=== PATIENT | female | born 1965 | race Caucasian/White ===

== ENCOUNTER 2024-01-18 09:29 | Outpatient (RCR) | payer OTHER, SELFPAY | END 2024-01-18 23:59 | disposition home or self-care (01) | LOC: RPT 09:29 | PROVIDERS: ATTENDING PHYSICIAN Podiatrist; FAMILY PHYSICIAN Nurse Practitioner Primary Care | DX: Z47.89 Encounter for other orthopedic aftercare (principal); M79.672 Pain in left foot; Z73.6 Limitation of activities due to disability | CPT/HCPCS: 97110; 97162; 97535 ==

== ENCOUNTER → 2024-02-01 11:21 | Outpatient (REF) | payer OTHER, SELFPAY | LOC: WDC 11:21 | PROVIDERS: ATTENDING PHYSICIAN Nurse Practitioner Primary Care; REFERRING PHYSICIAN Internal Medicine Geriatric Medicine | DX: Z12.31 Encounter for screening mammogram for malignant neoplasm of breast (principal) | CPT/HCPCS: 77063; 77067 ==

== ENCOUNTER 2024-02-05 18:07 | Outpatient (RCR) | payer OTHER, SELFPAY | END 2024-02-05 23:59 | disposition home or self-care (01) | LOC: RPT 18:07 | PROVIDERS: ATTENDING PHYSICIAN Podiatrist; FAMILY PHYSICIAN Nurse Practitioner Primary Care | DX: M79.672 Pain in left foot (principal); Z98.890 Other specified postprocedural states; Z73.6 Limitation of activities due to disability | CPT/HCPCS: 97110; 97140 ==

== ENCOUNTER → 2024-07-30 19:39 | Outpatient (REF) | payer OTHER, SELFPAY | LOC: MRI 3T 19:39 | PROVIDERS: ATTENDING PHYSICIAN Physician Assistant; FAMILY PHYSICIAN Nurse Practitioner Primary Care | DX: H93.A2 Pulsatile tinnitus, left ear (principal) | CPT/HCPCS: 70543; 70553; A9575 ==

== ENCOUNTER → 2024-11-27 14:33 | Outpatient (REF) | payer OTHER, SELFPAY | LOC: HWRAD 14:33 | PROVIDERS: ATTENDING PHYSICIAN Nurse Practitioner Primary Care | DX: M85.89 Other specified disorders of bone density and structure, multiple sites (principal) | CPT/HCPCS: 77080 ==

== ENCOUNTER → 2025-01-17 09:11 | Outpatient (REF) | payer OTHER, SELFPAY | LOC: HWRCS 09:11 | PROVIDERS: ATTENDING PHYSICIAN Internal Medicine Cardiovascular Disease; FAMILY PHYSICIAN Nurse Practitioner Primary Care | DX: R00.2 Palpitations (principal); R06.02 Shortness of breath | CPT/HCPCS: 93306 ==

== ENCOUNTER → 2025-02-06 07:40 | Outpatient (REF) | payer OTHER, SELFPAY | LOC: HWRAD 07:40 | PROVIDERS: ATTENDING PHYSICIAN Physician Assistant; FAMILY PHYSICIAN Nurse Practitioner Primary Care | DX: R59.0 Localized enlarged lymph nodes (principal) | CPT/HCPCS: 76536 ==

== ENCOUNTER → 2025-02-24 13:52 | Outpatient (REF) | payer OTHER, SELFPAY | LOC: WDC 13:52 | PROVIDERS: ATTENDING PHYSICIAN Nurse Practitioner Primary Care | DX: Z12.31 Encounter for screening mammogram for malignant neoplasm of breast (principal) | CPT/HCPCS: 77063; 77067 ==

== ENCOUNTER 2025-09-15 13:22 | Observation (INO) | payer OTHER, SELFPAY ==
[2025-09-15] VITALS (9 sets, daily range): BP systolic 102–148; BP diastolic 64–106; PULSE 73–96; BMI 25.7; BMI 25.6
--- NOTE | 2025-09-15 08:29 | ED.GENMED ---
History of Present Illness
General
Chief Complaint: Dizziness
Source: patient and spouse
Exam Limitations: none
Time Seen by Provider: 09/15/25 08:16
Nursing documentation reviewed up to this point in time: agreed with
History of Present Illness
History of Present Illness:
Note:
CHIEF COMPLAINT(S)
Lightheadedness and dizziness.
HISTORY OF PRESENT ILLNESS
The patient is a 60-year-old female who presents with lightheadedness and dizziness. She reports feeling physically imbalanced and describes mixed sensations of spinning and lightheadedness that intensify with movement. The patient mentions nausea
associated with these sensations but denies any headache. She does not indicate current use of any prescribed medications from the morning. The patient was diagnosed with strep throat recently and began treatment with amoxicillin. There is no
current sore throat, but there was at the onset of the illness. The patient denies any recent ophthalmology appointments, although some vision assessments were conducted as part of the physical examination today.
PAST MEDICAL AND SURGICAL HISTORY
The patient reports being diagnosed with hypertension in 2019, which has been managed with propranolol, and does not report significant issues since treatment started.
ALLERGIES
The patient mentioned an unspecified allergy to medications.
MEDICATIONS
The patient is currently taking propranolol for hypertension.
PHYSICAL EXAM
General: Alert, no acute distress.
Skin: Warm, dry.
Head: Normocephalic, atraumatic.
Neck: Supple, trachea midline.
Eye, Ears, Nose, Mouth, and Throat: Oral mucosa moist, vision assessment conducted.
Cardiovascular: Normal peripheral perfusion, no edema.
Respiratory: Respirations are non-labored.
Gastrointestinal: Abdomen nondistended.
Back: Normal range of motion, normal alignment.
Musculoskeletal: Normal range of motion, normal strength.
Neurological: Alert and oriented to person, place, time, and situation, no focal neurological deficit observed.
Psychiatric: Cooperative, appropriate mood & affect.
PLAN
1. Perform a computed tomography (CT) scan of the head.
2. Conduct blood tests to further evaluate the cause of symptoms.
3. Administer medication to alleviate dizziness and nausea; include metoclopramide and diphenhydramine.
4. Follow up on the effectiveness of medications and interventions administered initially.
5. Conduct further eye movement tests if necessary based on CT and blood test results.
DIFFERENTIAL DIAGNOSIS
The Differential Diagnosis includes, in no particular order and is not limited to:
1. Benign paroxysmal positional vertigo (BPPV)
2. Vestibular neuronitis
3. Menieres disease
4. Orthostatic hypotension
5. Hypertension
6. Labyrinthitis
7. Acute labyrinthine concussion or trauma
8. Cerebellar stroke or transient ischemic attack
9. Anxiety disorder with panic attacks
10. Migraine-associated vertigo
CARE-UPDATE
09/15/25 - 12:08
CT head and neck angiography and non-contrast show no acute findings. The patient continues to experience dizziness and blurry vision in the right eye. Neurology recommends starting aspirin and admission for MRI and further evaluation.
EKG
My independent EKG interpretation is:
- Time of EKG: Not provided
- Rhythm: Normal sinus rhythm
- Heart Rate: 68 bpm
- TN Interval: Normal
- QRS Duration: Normal
- QT Interval: Normal
- Gaffney: Normal
- Abnormalities: None observed (No signs of ischemia)
Disposition:
SUMMARY OF ENCOUNTER
The patient, a 60-year-old female, presented to the emergency department with complaints of lightheadedness, dizziness, and recent changes in vision, specifically blurry vision in the right eye. Given the concern for a posterior circulation
cerebrovascular accident (CVA), a CT scan of the head and a CT head and neck angiography were ordered. These imaging tests showed no acute findings. The patient was treated with aspirin and the case was discussed with neurology, who recommended
admission for further evaluation with an MRI and additional assessments.
DISPOSITION
Admit to hospital for further evaluation.
ASSESSMENT
The current assessment is concern for posterior circulation cerebrovascular accident (CVA) despite no acute findings on initial CT imaging.
EMERGENCY TREATMENTS ADMINISTERED
Aspirin was administered according to neurologys recommendation.
MANAGEMENT OF THE PATIENTS CARE WAS DISCUSSED WITH
Neurologist for further evaluation and management decision-making.
PLAN
Admit the patient for further evaluation, specifically to undergo an MRI and additional assessments as determined by neurology.
INDEPENDENT REVIEW OF LABS AND INTERPRETATION OF TESTS
My independent review of CT head and neck angiography and non-contrast CT head is no acute findings.
MEDICATION RECONCILIATION
Aspirin administered.
MEDICAL DECISION MAKING
-Complexity of Data Reviewed: Chronic conditions affecting care include hypertension. Differential diagnosis includes benign paroxysmal positional vertigo (BPPV), vestibular neuronitis, Menieres disease, orthostatic hypotension, hypertension,
labyrinthitis, acute labyrinthine concussion or trauma, cerebellar stroke or transient ischemic attack, anxiety disorder with panic attacks, migraine-associated vertigo.
-Data:
Category 1
My independent interpretation of CT head and CT head and neck angiography showed no acute findings.
Category 3
Discussion of management with neurology regarding the administration of aspirin and decision to admit for further evaluation.
DIAGNOSIS
Suspected posterior circulation cerebrovascular accident (CVA) ICD-10 Code: I63.8
Past History
Past History
ED Past Medical History: Hypercholesterolemia and Other (Adrenal insufficiency, prolapsed bladder, kidney stones, colitis)
ED Past Surgical History: , Gynecological (Tubal ligation, laparoscopy for lysis of adhesions) and Other (Breast reduction)
Social History
Tobacco: Non-smoker
Alcohol: Occasional
Personal:
Living: with family
Employment: Employed
Family History
Family History: Diabetes, Hypertension and Other (Grandmother with prolapsed bladder mother with breast cancer)
Phy Exam
Physical Exam
Physical Exam:
.
Course
Orders/Labs/Results
Orders:
Orders
09/15/25 Breakfast
Cholesterol Lowering
At Your Request: Full Participation
Does patient need a safe tray?: No
09/15/25 08:28
Electrocardiogram (*1) Stat
Reason for Study: Other
Other Reason for Exam: neuro symptoms
CT Head & Neck Angio W/wo IV Urgent
Comment:
Reason For Exam: right eye vision changes since Monday
Cardiac Monitoring- Treatment ONCE
EKG- Treatment ONCE
09/15/25 08:30
Diphenhydramine [Benadryl] 25 mg IV NOW STA
Metoclopramide [Reglan] 10 mg IV NOW STA
09/15/25 08:44
Complete Blood Count/With Diff Urgent
Comprehensive Metabolic Panel Urgent
PTT Urgent
Prothrombin Time Urgent
09/15/25 08:51
Electrocardiogram (*1) Urgent
Reason for Study: Vertigo / Dizzy
09/15/25 12:05
Aspirin 325 mg PO NOW STA
09/15/25 12:47
Admit/Transfer Patient As Directed
Co-Sign Provider:
Level of Care: Observation services
Assign to:: Telemetry
Physician / Group: Dario
Diagnosis: Blurry Vision
Reason for Telemetry: CVA/TIA
Date to Stop Telemetry: 09/18/25
Time to Stop Telemetry: 11:00
PRN Pain Medication Management As Directed
May give lesser potent ordered pain med per pt: Yes
preference::
Protocol:: Medication orders for pain may be administered in a
manner that supports deferring to patient preference
when the pt is:
- Requesting an ordered lesser potent pain medication.
Least to most potent pain medications are defined
as: acetaminophen < NSAID < tramadol < opioids
(morphine, oxycodone, hydromorphone).
- Requesting a lesser dose of the same medication IF
ORDERED.
- Requesting a less intrusive route of administration
if both routes are prescribed by the provider (PO <
IV).
09/15/25 12:51
Code Status As Directed
Resuscitation Status: Full Code
09/15/25 13:15
Acetaminophen [Tylenol] 650 mg PO NOW STA
09/15/25 15:32
Acetaminophen [Tylenol/Feverall] 650 mg RECTAL Q4HPRN PRN
Acetaminophen [Tylenol] 650 mg PO Q4HPRN PRN
estradiol See Dose Instructions TRANSDERM MOFR
09/15/25 15:32
Case Management Consult ONCE
Case Management Consult: Discharge Planning
Comment: stroke/tia
DIETARY IP CONSULT Routine
Reason for Consult: stroke/TIA
NEUROLOGY CONSULT Urgent
Consulting Provider: Ray Carrillo
Was physician already notified: Yes
[facility] Registered Nurse Urgent
MR Brain Without Contrast Routine
Comment:
Reason For Exam: stroke/TIA
Recent pill cam endoscopy?: No
Activity As Directed
Activity Level: Out of Bed-Early Mobility
NIH Stroke Scale As Directed
Directions: Per protocol
Comment: every shift and with any change in condition or mental status
Neurological Checks As Directed
Frequency: q4h
Additional Instructions:: q4h x 24h upon admission to the floor, then qshift & with any change in condition
and mental status
Orthostatic Vital Signs As Directed
Orthostatic VS Frequency: Daily
Patient Education As Directed
Type: Stroke education packet
Comment: provide to patient and family
Pneumatic Compression Sleeves As Directed
Type: Knee high
Vital Signs As Directed
Frequency: Per unit guidelines
Call for:: BP greater than 180/105 mmHg or less than 100/60 mmHg
Ot Eval And Treat Routine
Pt Eval And Treat Routine
Activity Level: Out of Bed-Early Mobility
Speech Therapy Eval & Treat Routine
DX Deep Vein Thrombosis Video Routine
09/16/25 06:00
Basic Metabolic Panel IN AM
Cardiovascular Evaluation IN AM
Complete Blood Count/No Diff IN AM
Glycohemoglobin (HgbA1c) IN AM
Magnesium IN AM
09/16/25 08:00
Aspirin Chewable [Low Strength Aspirin] 81 mg PO DAILY
Hydrochlorothiazide [Oretic] 12.5 mg PO DAILY
Venlafaxine [Effexor] 25 mg PO DAILY
progesterone micronized See Dose Instructions PO DAILY
09/18/25 11:00
DC Protocol for Telemetry ONCE
Abnormal Lab Results
09/15/25
08:44
Carbon Dioxide 31 H mmol/L
(2230)
09/15/25 08:44
09/15/25 08:44
Vital Signs
Initial and Last Documented VS:
Initial Vital Signs
Temp Pulse Resp BP Pulse Ox
97.7 F 83 16 140/87 99
09/15/25 08:13 09/15/25 08:13 09/15/25 08:13 09/15/25 08:13 09/15/25 08:13
Last Documented Vital Signs
Temp Pulse Resp BP Pulse Ox
97.7 F 73 17 109/68 98
09/15/25 08:13 09/15/25 14:53 09/15/25 14:53 09/15/25 14:53 09/15/25 10:00
*Pulse Oximetry
SaO2: 99
Oxygen Mode of Delivery: Room air
Patient hypoxic: no
*Critical Care Note
Total Time (30-74mins, 75-104mins- exclusive of procedures): Not Applicable
ED Attending Note
-
Portions of this chart may have been created with voice recognition software.� Occasional wrong word or��sound alike� substitutions may have occurred due to the inherent limitations of voice recognition software.
Discharge Plan
Departure
Patient Disposition: Admit
Date of Disposition: 09/15/25
Time of Disposition: 12:05
Admit to: Telemetry
Presentation/result/management discussed w/ accepting MD/DO: Hospitalist
Patient with high blood pressure during this ER visit?: Yes
Condition: Good
Discharge Problem:
Blurred vision, right eye, Dizziness
Interventions
Interventions:
*Risk Screen - Suicide Last Done: 09/15/25 15:50
*General Assessment Last Done: 09/15/25 08:50
*Neglect/Abuse Screening Last Done: 09/15/25 08:15
*ED- Fall Risk Assessment Last Done: 09/15/25 08:50
*ED COVID-19 Vaccine History Last Done: 09/15/25 15:50
*ED Influenza Vaccine History Last Done: 09/15/25 08:50
*Nursing Disposition Last Done: 09/15/25 15:25
ED- Neurological Assessment Last Done: 09/15/25 08:50
ED- Cardiac Assessment Last Done: 09/15/25 08:50
Discharge Date and Time
Discharge Date/Time: 09/15/25 15:35
[2025-09-15] MEDS: REGLAN 10 MG IV (08:45)
[2025-09-15] MEDS: BENADRYL 25 MG IV (08:45)
[2025-09-15 09:04] LABS: Hematocrit 43.7 % (37.0-47.0); Hemoglobin 14.7 g/dL (12.0-16.0); Mean Corp Hgb Conc. 33.6 g/dL (33.0-37.0); Mean Corpuscular Volume 85.5 fL (81.0-99.0); Nucleated Red Blood Cells % 0 %; Platelet Count 320 10^3/uL (130-400); Red Cell Dist. Width 13.2 % (11.5-14.5)
[2025-09-15 09:13] LABS: INR 0.93; PT 12.8 Sec (11.4-14.6)
[2025-09-15 09:14] LABS: APTT 25.8 Sec (23.4-35.0)
[2025-09-15 09:20] LABS: ALT (SGPT) 23 U/L (0-35); AST (SGOT) 22 U/L (14-36); Albumin 4.4 g/dl (3.5-5.0); Alkaline Phosphatase 53 U/L (38-126); Blood Urea Nitrogen 17 mg/dl (7-17); Calcium 9.3 mg/dl (8.4-10.2); Carbon Dioxide 31 mmol/L (22-30); Chloride 102 mmol/L (98-107); Glucose 86 mg/dl (70-99); Potassium 4.5 mmol/L (3.5-5.1); Sodium 137 mmol/L (135-145); Total Protein 6.9 g/dl (6.3-8.2); eGFR > 60.00
--- NOTE | 2025-09-15 12:13 | HPS.HSE ---
Family Physician
-
Family Physician: Sandra Lujan
Chief Complaint
-
Blurry Vision and Dizziness
History of Present Illness
Patient is a 60 y/o female past medical history of adrenal insufficiency, and dyslipidemia who presents with blurry vision, dizziness and headache. Patient reports last week she took a coarse of antibiotics for strep throat, and notes she took
steroids for her adrenal insufficiency. She reports she does not take steroids on a regular basis. Two days ago she developed blurry vision involving her right eye only. She reports associated dizziness and difficulty with her balance. She
reports headache described as pressure across the top of her head. She denies any prior similar visual problems.
Medical History
Past Medical History
Past Medical History: Reports Other
Additional Past Medical History:
Adrenal Insufficiency
Dyslipidemia
Spinal Stenosis
GERD
Lymphocytic Colitis
Small Bowel Bacterial Overgrowth
Nephrolithiasis
Migraine Headache (Patient reports resolved after menopause)
Past Surgical History: Reports Other
Additional Past Surgical History:
Exploratory Laparotomy for Adhesion
Section
Tubal Ligation
Breast Reduction
Social History
Tobacco: Non-smoker
Alcohol: None
Family History
Family History: Not pertinent
Allergies / Home Medications
Allergies reflects when Allergies were last updated in [email or web address].
Home Medications with original date entered in [email or web address]
Allergy/Medication List:
Allergies
Allergy/AdvReac Type Severity Reaction Status Date / Time
No Known Allergies Allergy Verified 10/07/22 14:45
Home Medications
venlafaxine 25 mg tablet 25 mg PO DAILY 09/21/19
estradiol 0.025 mg/24 hr semiweekly transdermal patch 1 patch transdermal MOFR 09/15/25
hydrochlorothiazide 12.5 mg tablet 12.5 mg PO DAILY 09/15/25
progesterone micronized 100 mg capsule 100 mg PO DAILY 09/15/25
tirzepatide (weight loss) 7.5 mg/0.5 mL subcutaneous pen injector (Zepbound) 7.5 mg SC FR 09/15/25
Review of Systems
-
A 12 point ROS was completed and negative except as noted: Yes
Constitutional: Denies Fever or Chills
Respiratory: Denies Cough or Trouble Breathing
Cardiac: Denies Chest Pain or Palpitations
Physical Exam
Vital Signs
Vital Signs
Temp Pulse Resp BP Pulse Ox
97.7 F 67 15 120/84 98
09/15/25 08:13 09/15/25 10:00 09/15/25 10:00 09/15/25 10:00 09/15/25 10:00
Physical Exam
General: Well Developed, Well Nourished and No Apparent Distress
HEENT: NormoCephalic, Anicteric, Moist mucous membranes, Atraumatic and Other (Blurry Vision reports with right eye only )
Respiratory: Clear and Non Labored Respirations; No Wheezes, Rales or Rhonchi
Cardiac: S1/S2 and Regular Rhythm; No Murmur
GI: Soft, Non Tender, Non Distended and Normal Bowel Sounds
Rectal: Deferred by Provider
Musculoskeletal: No Clubbing, No Cyanosis and No Edema
Skin: Warm and Dry; No Rash
Neuro: Awake, Alert, Oriented and Nonfocal/grossly intact
Psych: Calm
Laboratory Results
-
09/15/25 08:44
09/15/25 08:44
Laboratory Results
PT 12.8 Sec (11.4-14.6) 09/15/25 08:44
INR 0.93 09/15/25 08:44
APTT 25.8 Sec (23.4-35.0) 09/15/25 08:44
Total Bilirubin 1.0 mg/dl (0.2-1.3) 09/15/25 08:44
AST 22 U/L (14-36) 09/15/25 08:44
ALT 23 U/L (0-35) 09/15/25 08:44
Alkaline Phosphatase 53 U/L (38-126) 09/15/25 08:44
Data Reviewed
-
CT Scan: Report Reviewed by me
Lab Data: Labs Reviewed by me
Impression/Plan
-
Monocular Blurry Vision of Right Eye, possibly ocular migraine vs primary ophthalmologic problem, low suspicion for acute stroke
-Consult Neurology
-Continue aspirin
-Check Brain MRI
-Check HgbA1c and Lipid Panel
Adrenal Insufficiency
-Patient reports no longer taking steroids on a regular basis
Dyslipidemia
-Patient reports intolerance to statins
Nephrolithiasis
-Continue HCTZ
DVT proph: SCDs
Code Status: Full Code
--- NOTE | 2025-09-15 12:35 | W.PN.UPDATE ---
Update Note
Progress Note Update
This note serves as an addendum to the H&P by publications sales representative SUSANA�
Karolina DIETERICK
HPI�
60F Non smoker seen at ER
- reports R Eyes abnormal visual changes on Sat ( 09/13/25)
- also reports dizziness
- now feels like 'my head is about to explode'.
- Pt had an Cabin Worker but not Certified Registered Dental Assistant but did not see them
- Recent antibiotics for strep throat.
PHX
Hypercholesterolemia
Adrenal insufficiency
prolapsed bladder
kidney stones
colitis
Tubal ligation, laparoscopy for lysis of adhesions
Breast reduction
Relevant VS
Temp Pulse Resp BP Pulse Ox
97.7 F 67 15 120/84 98
09/15/25 08:13 09/15/25 10:00 09/15/25 10:00 09/15/25 10:00 09/15/25 10:00
PE
Gen: NAD
HEENT: R eye blurry vision
Neck: supple, no neck bruit
Lungs: CTA
Cor: RRR S1 S2
TOWEL DISTRIBUTOR: AAO3, NFND
MS:No edema
Psych: Nl mood and affect
Relevant Data�
10/03/22 09/15/25
15:06 08:44
WBC 5.6
Hgb 14.3 14.7
Plt Count 270 320
09/15/25
08:44
Carbon Dioxide 31 H
BUN 17
Creatinine 1.0
eGFR > 60.00
EKG
NORMAL SINUS RHYTHM
CANNOT RULE OUT INFERIOR INFARCT , AGE UNDETERMINED
ABNORMAL ECG
WHEN COMPARED WITH ECG OF 15-Sep-2025 08:37,
NO SIGNIFICANT CHANGE WAS FOUND
Confirmed by PARRIS BARRERA MD ([id number]) on 09/15/2025 11:49:40 AM
11/24/25 CT Head & Neck Angio W/wo IV
CT Brain: No acute intracranial process. Specifically, no evidence of acute hemorrhage.
CTA Head: No significant arterial stenosis. No aneurysm.
CTA Neck: No significant arterial stenosis. Mild degenerative changes of C4-C7.
ASSESSMENT & PLAN
Acute and persistent and worsening R Eye monocular blurry vision since Sat ( 09/13/24 )
DDX is broad such as Ophthalmic migraine, Ocular circulation, Optic Nv, Glaucoma, Retinal TIA
HX intolerance to multiple statins
- Has MYERS
- painless
- No red eye
- No flashes or floaters
- No field defect
- Non contrast brain MRI
- s/p loading ASA - cont baby ASA
- Fasting lipids, A1C
HX Adrenal insufficiency
K 4.1, HCO3 31
- Partial adherence to hydrocortisone
- last dose hydrocortisone was last week
- Encorage adherence to Steroid replacement Tx
BMI 25 - qualify for overweight
On SC Tirzepatide Q FRI for Fatty liver ??? since March 2025
DVT Px:
Full Code:
OBS TLM
--- NOTE | 2025-09-15 12:37 | CON.NEURO4 ---
Addendum entered and electronically signed by Ray Carrillo MD 09/15/25 22:00:
The etiology of her symptoms is not clear at this time but she appears to have decreased vision only in the right eye and she does not have a visual field deficit. The patient says that her vision in the right eye is decreased by about 10 to 20% as
compared to the left eye. She will be seen by an bulk driver when she is discharged from the hospital. The plan is to get MRI of the brain without contrast to rule out a posterior circulation stroke. Cannot rule out branch retinal artery
occlusion.
Addendum entered and electronically signed by Ray Carrillo MD 09/15/25 21:57:
The patient was seen and examined today along with nurse practitioner Margarita Reid, and I agree with her assessment and management plan. Given below is my addendum.
The patient is a 60 years old female who presented to the hospital with report of dizziness and right eye visual disturbance starting about 2 days ago on 09/13/2025. She also reports headache which she thinks is because of the 'eye strain'. She
was able to read quite well but she says that she still feels that the vision in the right eye is slightly decreased as compared to left eye and she says it is new for her for the last 2 days.
Neurologic examination: The patient is alert and oriented x 3, speech is clear, the cranial nerves II to XII are grossly intact, the visual knight are grossly full, the motor strength is 5/5 bilaterally, the sensations are grossly intact and there
is no limb ataxia seen.
The patient was not a candidate for TNK as the NIH stroke scale was 0.
The etiology of her symptoms is clear at this time but she appears to have decreased to urine only in the right eye and she does not have a visual field deficit. She will be seen by an bulk driver when she is discharged from the hospital. The
plan is to get MRI of the brain without contrast to rule out a posterior circulation stroke. Cannot rule out branch retinal artery occlusion.
She will also be on aspirin 81 mg daily. She will also be on atorvastatin 20 mg daily.
Original Note:
Consultation - Neurology 4
-
CONSULTING PHYSICIAN: Ray Carrillo MD
REFERRING PHYSICIAN: Hospitalists/Nohelia Rodarte PA-C
DICTATED BY: SHA Gandara
DATE/TIME OF REQUEST: 09/15/25
DATE/TIME OF CONSULTATION: 09/15/25
Reason for Consultation: Left eye visual disturbance
History of Present Illness:
This is a 60-year-old female who has presented to the hospital with report of dizziness and right eye visual disturbance starting two days ago on 09/13/25. Patient reports that last week she had an 'eye strain' headache most of the week which she
attributed it to working on her computer. She also notes having strep throat and completing a course of antibiotics and steroids for adrenal insufficiency. Two days ago on 09/13/25 she woke up around 0600 and reports she initially thought she felt
at her baseline. She started reading, and noticed that her vision had wavy lines in her right eye only. She put her glasses on and her symptoms did not improve. When she closes her left eye her vision does not improve in her right eye, but when she
closes her right eye her left eye vision is normal. She also note feeling dizzy at the same time, she describes this as off-balance. Her symptoms did not resolve, prompting her to come to the ER for evaluation. CTA head/neck was obtained on arrival
and is negative for any acute abnormalities. She is not a candidate for TNK/IAT due to NIHSS 0, outside of time window. She was loaded with aspirin in the ER. She denies any speech/swallowing difficulty, numbness, and weakness. She still notes an
'eye-strain' frontal headache that she rates a 2/10. Her glasses were updated over the summer by optometry, she has not seen ophthalmology yet. She notes a history of migraine headaches prior to menopause but she has never had symptoms like this
associated with her headaches in the past.
Past Medical History: HLD, PPPD, migraines, TMJ, HLD, adrenal insufficiency, spinal stenosis, anxiety, depression, IBS, osteopenia
Surgical History: R RTC repair, b/l bunionectomy, , breast reduction, tubal ligation, laparoscopy for lysis of adhesions.
Family History: Mother- ICH.
Social History: Denies tobacco and illicit drug use. Occasional alcohol.
Allergies: No known allergies.
Home Medications: See below.
Review of Symptoms:
Patient denies any fever, chest pain, shortness of breath, GI or symptoms.
�Per the HPI.�All systems are reviewed negative except above.
Physical Exam:
The patient is afebrile, abdomen is nondistended, breathing is unlabored, skin is warm and dry, no edema.
NIH Stroke Scale:
I performed the NIH stroke scale on the patient on 09/15/25 at 1245. The patient scored 0 points on the NIH stroke scale assessment, which were assigned as follows: See below.
Neurologic Examination:
The patient is awake, alert and oriented x 3. She is able to follow commands and answer questions appropriately. There is no aphasia or dysarthria. On cranial nerve assessment, pupils are 3 mm bilateral, round and reactive to light and
accommodation. Visual knight are full. Extraocular movements are intact. Facial sensations are intact and bilaterally symmetrical, there is no facial asymmetry. Hearing is intact bilaterally to normal conversation volume. Tongue palate and uvula
are midline. Sternocleidomastoid strengths are full bilaterally. Motor strengths are 5/5 bilateral upper and lower extremities on medical research [place] scale. There is no drift or involuntary movement noted. Deep tendon reflexes are 2+ bilateral
upper and lower extremities and Babinski is absent bilaterally. Sensations of pain, touch, temperature and vibration are intact and bilaterally symmetrical. There was no extinction noted on double simultaneous stimulation. Coordination is intact by
finger to nose bilaterally.
Lab Results: See below.
Neuro Imaging:
1. CTA head/neck 09/15/25: CT Brain: No acute intracranial process. Specifically, no evidence of acute hemorrhage. CTA Head: No significant arterial stenosis. No aneurysm. CTA Neck: No significant arterial stenosis. Mild degenerative changes of
C4-C7.
Differentials for the patient's presentation include:
1. Right eye visual disturbance, dizziness, and headache; uncertain etiology, possibilities include an eye abnormality given this is a unilateral eye issue, complicated migraine, vs an ischemic stroke.
Patient has the following risk factors for their symptoms: HTN, HLD, hx migraines
IV Tenecteplase/IAT candidacy: Not a candidate due to NIHSS 0, outside of time window.
Recommendations:
-Continue aspirin 81mg daily.
-MRI brain noncontrast pending.
-Check orthostatic vital signs.
-Goal normotension.
-NIHSS and neurological checks per unit guidelines.
-Provide patient with a stroke education packet.
-Follow-up with ophthalmology as an outpatient.
Discussed patient care with: Dr. Carrillo, the patient, patient's spouse
Vital Signs and Labs
-
Vital Signs and Labs:
Vital Signs
Temp Pulse Resp BP Pulse Ox
97.7 F 67 15 120/84 98
09/15/25 08:13 09/15/25 10:00 09/15/25 10:00 09/15/25 10:00 09/15/25 10:00
Lab Results
09/15/25 08:44
09/15/25 08:44
PT 12.8 Sec (11.4-14.6) 09/15/25 08:44
INR 0.93 09/15/25 08:44
APTT 25.8 Sec (23.4-35.0) 09/15/25 08:44
Sodium 137 mmol/L (135-145) 09/15/25 08:44
Potassium 4.5 mmol/L (3.5-5.1) 09/15/25 08:44
BUN 17 mg/dl (7-17) 09/15/25 08:44
Glucose 86 mg/dl (70-99) 09/15/25 08:44
Calcium 9.3 mg/dl (8.4-10.2) 09/15/25 08:44
Medications
-
Home Medications
�Medication �Instructions �Recorded
venlafaxine 25 mg tablet 25 mg PO DAILY 09/21/19
estradiol 0.025 mg/24 hr 1 patch transdermal MOFR 09/15/25
semiweekly transdermal patch
hydrochlorothiazide 12.5 mg tablet 12.5 mg PO DAILY 09/15/25
progesterone micronized 100 mg 100 mg PO DAILY 09/15/25
capsule
tirzepatide (weight loss) 7.5 7.5 mg SC FR 09/15/25
mg/0.5 mL subcutaneous pen
injector (Zepbound)
NIH Stroke Score
Subsequent NIH Scale
Date of Subsequent NIH Scale: 09/15/25
Time of Subsequent NIH Scale: 12:45
NIH Stroke Score
Level of Consciousness: 0 - Alert
LOC Questions: 0-Answers both correctly
LOC Commands: 0-Performs both correctly
Best Horizontal Gaze: 0-Normal
Visual Knight: 0=Normal, no visual loss
Facial Palsy: 0=Normal, symmetrical
Motor - Right Arm: 0=No drift 10 seconds
Motor - Left Arm: 0=No drift 10 seconds
Motor - Right Le-No drift 5 seconds
Motor - Left Le-No drift 5 seconds
Limb Ataxia: 0-Absent
Sensation: 0-Normal
Best Language: 0-No aphasia
Dysarthria: 0-Normal
Extinction and Inattention: 0-No abnormality
NIH Total Score:: 0
Modified Andrew (mRS) Score
Modified Andrew Scale (mRS): Slight disability. Able to look after own affairs.
Score: 2
Alteplase Contraindication
Inclusion and Exclusion criteria reviewed: Yes
Reasons for NON-Tx with Thrombolytics ABSOLUTE Exclusions: Greater than 4.5 hrs from onset of sxs
IAT Contraindications: NIHSS < 6
[2025-09-15] MEDS: TYLENOL 650 MG PO (13:20)
[2025-09-15] MEDS: ASPIRIN 325 MG PO (13:20)
--- NOTE | 2025-09-15 13:33 | EDCM ---
Reviewed chart and met with pt bedside in ED. Lives with her in [address], [address].
Independent in ADLs, personal care and ambulation at baseline. No assistive devices, no DME in home.
Confirms prescription coverage.
OBS form reviewed and signed, copy left with pt.
No hx VN or SNF.
PCP: Sandra Lujan
Pharmacy: [facility]
Anticipate discharge home, CM will continue to follow for all discharge planning needs.
[2025-09-15] MEDS: NON-FORMULARY ITEM 1 PATCH TRANSDERM (18:19)
[2025-09-15] MEDS: EFFEXOR 25 MG PO (18:20)
[2025-09-15] MEDS: NON-FORMULARY ITEM 75 MG PO (21:57)
[2025-09-16 03:50] VITALS: BP 105/66
--- NOTE | 2025-09-16 07:16 | W.PN.HOSP.TC ---
Today's Communication/Plan
-
discharge today
follow-up with opthalmology scheduled
Assessment / Plan
Assessment / Plan
In summary, 60 yo F PMH adrenal insufficiency (not on hydrocortisone), persistent postural perceptive dizziness, migraine, HLD p/w acute onset of blurry vision in R eye, dysequilibrium, tinnitus, but denies subjective hearing loss with negative CTA
and negative MRI brain for infarct.
The ddx for acute blurry vision includes TIA, CVA, migraine, refractive errors, retinal detachment, retinal artery/vein occlusion among others
the ddx of dysequilibrium with tinnitus includes vestibular neuritis, Meniere, BPPV, labyrinthitis among others.
Monocular blurry vision without visual field deficit
Dysequilibrium with tinnitus but no vertigo
- Her presentation is not necessarily c/w any of the above etiologies.
- It could be a TIA because no acute infarct on MRI, but an unifying explanation for the eye and ear/balance symptoms is difficult.
- She has risk factors for TIA/CVA, including HLD, but this does not appear to be a CVA, per neuro cannot rule out retinal artery occlusion
- The preceding infection could be related to the vestibular symptoms but the blurry vision is difficult to explain, especially since it is unilateral.
- Could be related to her persistent postural perceptive dizziness
- orthostatic vitals negative
Plan:
- per neuro: aspirin 81mg
- atorvastatin 20mg
- BP within normal limits
- HbA1c 5.2%
- lipid panel: Total cholesterol: 271; LDL 194 --> should be on a statin, but she reports that she can't tolerate, PCP follow-up and she should aska bout PCSK9 inhibitors
- outpatient ophthalmology, neurology follow-up
Adrenal insufficiency
- no longer takes steroids on scheduled basis
persistent postural perceptive dizziness
- venlafaxine
HLD
- lipid panel: Total cholesterol: 271; LDL 194 --> should be on a statin, but she reports that she can't tolerate, PCP follow-up and she should aska bout PCSK9 inhibitors
Nephrolithiasis
- HCTZ
DVT ppx: SCDs
Code status: full
Anticipated Discharge: Within 24 hours
Subjective/Interval History
-
Date of Service: September 16, 2025
60 yo F PMH adrenal insufficiency (not on hydrocortisone), persistent postural percepive dizziness, migraine, HLD p/w acute onset of blurry vision in R eye that began 2-3 days ago. It is associated with a feeling of dysequilibrium but not vertigo
(room-spinning). She denies any symptoms in L eye. Denies curtain falling, field of vision becoming dim or peripheral vision changes. She describes it as if she has the wrong prescription lens for glasses.
This is a/w an initially throbbing headache that improved on its own. She attributes her nausea to the headache more than the blurry vision. Denies vomiting.
She denies focal neurological deficits.
She does endorse tinnitus but denies hearing loss. She reports strep throat ~1 week prior to the dysequilibrium and blurry vision in 1 eye.
She presnted to the ED 09/15 (~2 days after onset of symptoms). CTA in the ED was negative for acute abnormalities. MRI brain was also negative for acute infarct. Neurology was consulted and noted: AOx3, speech is clear, the cranial nerves II to XII
are grossly intact, the visual angeles are grossly full, the motor strength is 5/5 bilaterally, the sensations are grossly intact and there is no limb ataxia seen.' NIHSS was 0. Per Them, 'Cannot rule out branch retinal artery occlusion.'
She has hx of migraines that resolves after menopause (~7 years ago).
This morning, she feels well.
Denies any focal deficits, feels that the symptoms are improving.
Objective Data
-
Labs:
Laboratory Results
09/16/25
07:11
WBC Pending
Hgb Pending
Hct Pending
Plt Count Pending
Sodium Pending
Potassium Pending
Chloride Pending
Carbon Dioxide Pending
BUN Pending
Creatinine Pending
Glucose Pending
Calcium Pending
CBC unremarkable
A1c pending
lipid panel pending
MRI brain 09/15/2025
IMPRESSION:
No MRI evidence for an acute infarct.
CTA Head/Neck 09/15/2025
IMPRESSION:
CT Brain: No acute intracranial process. Specifically, no evidence of acute hemorrhage.
CTA Head: No significant arterial stenosis. No aneurysm.
CTA Neck: No significant arterial stenosis. Mild degenerative changes of C4-C7.
Vital Signs:
Vital Signs
Temp Pulse Resp BP Pulse Ox
98.3 F 77 18 105/66 98
09/16/25 03:50 09/16/25 03:50 09/16/25 03:50 09/16/25 03:50 09/16/25 03:50
VSS
I&O
09/15/25 09/16/25 09/17/25
06:59 06:59 06:59
Intake Total 700 / 700
Balance 700 / 700
Review of Systems
-
History Source: Patient
Constitutional: Reports No Symptoms
EENT: Reports Blurry Vision and Tinnitis
Respiratory: Reports No Symptoms
Cardiac: Reports No Symptoms
Abdomen/GI: Reports No Symptoms
Genitourinary: Reports No Symptoms
Musculoskeletal: Reports No Symptoms
Neuro: Reports Other (dysequilibrium not vertigo)
Physical Exam
-
General: Conversant
HEENT: Normocephalic
Respiratory: Clear to Auscultation
Cardiac: Other (no murmurs)
GI: Soft, Nontender and Nondistended
Musculoskeletal: No Edema
Neuro: Awake, Alert, No Motor Deficits, Central Nerve's Intact and Other (PERRLA, EOMI)
Psych: Calm
[2025-09-16 07:59] LABS: Hematocrit 44.6 % (37.0-47.0); Hemoglobin 14.9 g/dL (12.0-16.0); Mean Corp Hgb Conc. 33.4 g/dL (33.0-37.0); Mean Corpuscular Volume 85.1 fL (81.0-99.0); Platelet Count 333 10^3/uL (130-400); Red Cell Dist. Width 13.4 % (11.5-14.5)
[2025-09-16 08:05] VITALS: BP 116/74
[2025-09-16 08:06] VITALS: BP 110/68; BP 113/78; BP 116/74; PULSE 109; PULSE 71; PULSE 77
[2025-09-16 08:50] LABS: Blood Urea Nitrogen 18 mg/dl (7-17); Calcium 9.4 mg/dl (8.4-10.2); Carbon Dioxide 30 mmol/L (22-30); Chloride 104 mmol/L (98-107); Estimated Creatinine Clearance 51 ml/min; Glucose 82 mg/dl (70-99); HDL Cholesterol 59 mg/dl; LDL Cholesterol, Calculated 194 mg/dl; Magnesium 2.4 mg/dl (1.6-2.3); Potassium 4.5 mmol/L (3.5-5.1); Sodium 139 mmol/L (135-145); Very Low Density Lipoprotein 18 mg/dl (0-30); eGFR > 60.00
[2025-09-16] MEDS: ORETIC 12.5 MG PO (08:51)
[2025-09-16] MEDS: LOW STRENGTH ASPIRIN 81 MG PO (08:51)
--- NOTE | 2025-09-16 10:09 | PTOTSP ---
The patient is independent with ambulation and elevations, no mobility deficits noted. No PT needs identified at this time, will sign off.
[2025-09-16 10:25] LABS: Glycohemoglobin (HgbA1c) 5.2 % (4.0-5.9)
[2025-09-16 10:53] VITALS: BP 111/76; PULSE 72; O2SAT 98
--- NOTE | 2025-09-16 11:01 | PTOTSP ---
pt currently requires no assistance to complete simple ADLs, functional transfers, ambulation. pt reports vision is the same and has an appointment with ophthalmology today at 12:30 and a neurology appointment on Monday. no acute OT needs identified
at this time, will sign off.
[2025-09-16 11:11] VITALS: BP 125/80
--- NOTE | 2025-09-16 11:28 | CM ---
Pt discharged to home today no needs. transported pt home.
--- NOTE | 2025-09-16 11:29 | W.DCSUMMARY ---
Documented by User: Akhil Perez MD, Resident 09/16/25 11:42
Discharge Summary
Discharge Data
Date of Admission: 09/15/25
Date of Discharge: 09/16/25
-
Pending Results: No
Hospital Course
Discharging Physician : Dr. Milan Goins; Dr. Akhil Perez
Disposition : Home
Primary care physician : Sandra Lujan
Principal Discharge diagnosis : Blurred Vision, Right eye; Dysequilibrium with tinnitus but no vertigo
Chronic Discharge diagnosis : persistent postural perceptive dizziness, Adrenal Insufficiency, Dyslipidemia, Spinal Stenosis, GERD, Lymphocytic Colitis, Small Bowel Bacterial Overgrowth, Nephrolithiasis, Migraine Headache (Patient reports resolved
after menopause)
Hospital Course :
60 yo F PMH adrenal insufficiency (not on hydrocortisone), persistent postural percepive dizziness, migraine, HLD p/w acute onset of blurry vision in R eye that began 2-3 days ago. It is associated with a feeling of dysequilibrium but not vertigo
(room-spinning). She denies any symptoms in L eye. Denies curtain falling, field of vision becoming dim or peripheral vision changes. She describes it as if she has the wrong prescription lens for glasses.
This is a/w an initially throbbing headache that improved on its own. She attributes her nausea to the headache more than the blurry vision. Denies vomiting. She denies focal neurological deficits. She does endorse tinnitus but denies hearing loss.
She reports strep throat ~1 week prior to the dysequilibrium and blurry vision in 1 eye.
She presented to the ED 09/15 (~2 days after onset of symptoms). CTA in the ED was negative for acute abnormalities. MRI brain was also negative for acute infarct. Neurology was consulted and noted: AOx3, speech is clear, the cranial nerves II to
XII are grossly intact, the visual angeles are grossly full, the motor strength is 5/5 bilaterally, the sensations are grossly intact and there is no limb ataxia seen.' NIHSS was 0. Per Them, 'Cannot rule out branch retinal artery occlusion.'
She has hx of migraines that resolves after menopause (~7 years ago).
The following problems were addressed during this admission:
Monocular blurry vision without visual field deficit
Dysequilibrium with tinnitus but no vertigo
- Her presentation does not have a clear etiology but
- It could be a TIA because no acute infarct on MRI, but an unifying explanation for the eye and ear/balance symptoms is difficult.
- She has risk factors for TIA/CVA, including HLD, but this does not appear to be a CVA, per neuro cannot rule out retinal artery occlusion
- The preceding infection could be related to the vestibular symptoms but the blurry vision is difficult to explain, especially since it is unilateral.
- Could be related to her persistent postural perceptive dizziness
- orthostatic vitals negative
Plan:
- per neuro: aspirin 81mg
- lipid panel: Total cholesterol: 271; LDL 194 --> she reports that she can't tolerate statins, PCP follow-up. She has been instructed to ask about PCSK9 inhibitors
- BP within normal limits
- HbA1c 5.2%
- outpatient ophthalmology, neurology follow-up
Adrenal insufficiency
- no longer takes steroids on scheduled basis
persistent postural perceptive dizziness
- venlafaxine
HLD
- lipid panel: Total cholesterol: 271; LDL 194
- she reports that she can't tolerate statins, PCP follow-up. She has been instructed to ask about PCSK9 inhibitors
Hx of Nephrolithiasis
- HCTZ
Important imaging findings :
Head/Neck CTA 09/15/2025
IMPRESSION:
CT Brain: No acute intracranial process. Specifically, no evidence of acute hemorrhage.
CTA Head: No significant arterial stenosis. No aneurysm.
CTA Neck: No significant arterial stenosis. Mild degenerative changes of C4-C7.
Brain MRI 09/15/2025
IMPRESSION:
No MRI evidence for an acute infarct.
Procedure findings :
EKG 09/15/2025 08:51
Vent. Rate : 76 BPM Atrial Rate : 76 BPM
P-R Int : 150 ms QRS Dur : 78 ms
QT Int : 384 ms P-R-T Axes : 54 2 48 degrees
QTcB Int : 432 ms
NORMAL SINUS RHYTHM
CANNOT RULE OUT INFERIOR INFARCT , AGE UNDETERMINED
EKG 09/15/2025 08:28
Vent. Rate : 69 BPM Atrial Rate : 69 BPM
P-R Int : 132 ms QRS Dur : 78 ms
QT Int : 392 ms P-R-T Axes : 27 -4 28 degrees
QTcB Int : 420 ms
NORMAL SINUS RHYTHM
NORMAL ECG
Discharge Plan
-
Patient Disposition: Home (Routine Discharge)
Discharge Diagnosis/Procedures: Monocular blurry vision without visual field deficit; disequilibrium with tinnitus without vertigo, persistent postural perceptive dizziness, HLD, nephrolithiasis, adrenal insufficiency
Condition: Fair
Diet: Low Cholesterol
Activity: As tolerated
Driving Restrictions: As prior to admission
Referrals:
Sandra Lujan CRNP [Family Provider, Internal Medicine]
Ray Carrillo MD [Active, Neurology] - in three to four weeks
Additional Discharge Medication Instructions: You may continue all your home medications as you were taking.
You should start aspirin 81mg daily
Please follow-up with your PCP within 1 week and talk about PCSK9 inhibitors, ophthalmology and neurology.
Prescriptions:
New
aspirin 81 mg Tablet,Chewable
81 mg PO DAILY Qty: 30 0RF
Continued
venlafaxine 25 MG tablet
25 mg PO DAILY
estradiol 0.025 mg/24 hr patch semiweekly
1 patch transdermal MOFR
hydrochlorothiazide 12.5 mg tablet
12.5 mg PO DAILY
Zepbound 7.5 mg/0.5 mL pen injector
7.5 mg SC FR
progesterone micronized 100 mg Capsule
100 mg PO DAILY
Discharge Orders:
Discharge Patient (As Directed); Ordered 09/16/25
Ordered By: Akhil Perez
Discharge Date and Time
Discharge Date/Time: 09/16/25 11:31
Print Language: LATVIAN

Documented by User: Mialn Goins DO 09/16/25 11:52
Discharge Summary
Discharge Data
Date of Admission: 09/15/25
Date of Discharge: 09/16/25
Total time spent discharging patient (in min): 31
Discharge Plan
-
Patient Disposition: Home (Routine Discharge)
Discharge Diagnosis/Procedures: Monocular blurry vision without visual field deficit; disequilibrium with tinnitus without vertigo, persistent postural perceptive dizziness, HLD, nephrolithiasis, adrenal insufficiency
Condition: Fair
Diet: Low Cholesterol
Activity: As tolerated
Driving Restrictions: As prior to admission
Referrals:
Sandra Lujan CRNP [Family Provider, Internal Medicine]
Ray Carrillo MD [Active, Neurology] - in three to four weeks
Additional Discharge Medication Instructions: You may continue all your home medications as you were taking.
You should start aspirin 81mg daily
Please follow-up with your PCP within 1 week and talk about PCSK9 inhibitors, ophthalmology and neurology.
Prescriptions:
New
aspirin 81 mg Tablet,Chewable
81 mg PO DAILY Qty: 30 0RF
Continued
venlafaxine 25 MG tablet
25 mg PO DAILY
estradiol 0.025 mg/24 hr patch semiweekly
1 patch transdermal MOFR
hydrochlorothiazide 12.5 mg tablet
12.5 mg PO DAILY
Zepbound 7.5 mg/0.5 mL pen injector
7.5 mg SC FR
progesterone micronized 100 mg Capsule
100 mg PO DAILY
Discharge Orders:
Discharge Patient (As Directed); Ordered 09/16/25
Ordered By: Akhil Perez
Discharge Date and Time
Discharge Date/Time: 09/16/25 11:31
Print Language: LATVIAN
--- NOTE | 2025-09-16 11:31 | PTOTSP ---
Speech Therapy Evaluation:
Pt without predisposing or precipitating risk factors of dysphagia (Brain MRI negative). Oropharyngeal swallow functional at bedside. No chest imaging completed thus far, however WBC WBL, pt on room air, and without dysphagia hx. Risk of
post-prandial aspiration increased given hx of GERD.
Recommend:
1. Regular solids and thin liquids
2. Meds as tolerated
3. General aspiration and reflux precautions
4. DESKTOP ANALYST to s/o - please reconsult if indicated
== END 2025-09-16 11:31 | disposition home or self-care (01) ==
LOC: 4 EAST ACU 13:22
PROVIDERS: Physician Assistant Medical; ADMITTING PHYSICIAN Internal Medicine; ATTENDING PHYSICIAN Internal Medicine; CONSULT PHYSICIAN Psychiatry & Neurology Neurology; EMERGENCY PHYSICIAN Emergency Medicine; FAMILY PHYSICIAN Nurse Practitioner Primary Care
DX: H93.19 Tinnitus, unspecified ear (principal); H53.8 Other visual disturbances; R42 Dizziness and giddiness; E78.00 Pure hypercholesterolemia, unspecified; E27.40 Unspecified adrenocortical insufficiency; E66.3 Overweight; I10 Essential (primary) hypertension; K52.832 Lymphocytic colitis; K63.8219 Small intestinal bacterial overgrowth, unspecified; M48.00 Spinal stenosis, site unspecified; Z68.25 Body mass index [BMI] 25.0-25.9, adult; Z79.899 Other long term (current) drug therapy; N20.0 Calculus of kidney
CPT/HCPCS: 70496; 70498; 70551; 80048; 80053; 80061; 83036; 83735; 85025; 85027; 85610; 85730; 92610; 93005; 96374; 96375; 97161; 97166; 99285; G0378; Q9967